=== PATIENT | male | born 1950 | race Caucasian/White ===

== ENCOUNTER 2018-07-06 18:32 | Emergency (ER) | payer OTHER ==
[~2018-07-06] VITALS: Wt 75.3 kg
[2018-07-06] MEDS ORDERED: METH750T93 PO (21:42)
[2018-07-06] MEDS ORDERED: ACET-141 PO (21:42)
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
[2018-07-06 21:53] VITALS: BP 129/69; PULSE 73; RESP 18
== END 2018-07-06 21:55 | disposition home or self-care (01) ==
LOC: FTE 18:32
DX: M25.511 Pain in right shoulder (principal); Z87.891 Personal history of nicotine dependence
CPT/HCPCS: 99282